=== PATIENT | male | born 1990 | race Two or more races ===

== ENCOUNTER 2024-01-29 18:35 | Emergency (ER) | payer MEDICAID, OTHER ==
[~2024-01-29] VITALS: Ht 175.3 cm; Wt 82.9 kg
[2024-01-29 19:24] VITALS: BP 136/93; PULSE 100; RESP 20; TEMP 98; O2SAT 97
[2024-01-29] MEDS ORDERED: CYCL-614 PO (20:37)
[2024-01-29] MEDS ORDERED: ACE3T PO (20:37)
[2024-01-29] MEDS: KETOROLAC TROMETH 60MG/2ML VIAL IM ONE (20:55)
== END 2024-01-29 21:14 | disposition left against medical advice (07) ==
LOC: ER 18:35
DX: M54.50 Low back pain, unspecified (principal); G89.29 Other chronic pain; G57.92 Unspecified mononeuropathy of left lower limb; Z79.899 Other long term (current) drug therapy
CPT/HCPCS: J1885

== ENCOUNTER 2024-03-05 05:37 | Emergency (ER) | payer MEDICAID, OTHER ==
[~2024-03-05] VITALS: Ht 170.2 cm; Wt 80.2 kg
[2024-03-05 08:17] VITALS: BP 150/100; PULSE 83; RESP 17; TEMP 98; O2SAT 98
[2024-03-05] MEDS ORDERED: AMOX500T3 PO (08:43)
[2024-03-05] MEDS ORDERED: HYDR-4902 PO (08:43)
[2024-03-05] MEDS ORDERED: PRED20TA2 PO (08:43)
[2024-03-05] MEDS ORDERED: HYDR-4798 PO (12:35)
== END 2024-03-05 08:49 | disposition home or self-care (01) ==
LOC: ER 05:37
DX: G89.29 Other chronic pain (principal); M54.59 Other low back pain; H60.509 Unspecified acute noninfective otitis externa, unspecified ear; Z79.899 Other long term (current) drug therapy; Z79.1 Long term (current) use of non-steroidal anti-inflammatories (NSAID)

== ENCOUNTER 2024-05-30 21:35 | Emergency (ER) | payer MEDICAID, OTHER ==
[~2024-05-30] VITALS: Ht 170.2 cm; Wt 83.5 kg
[~2024-05-30 21:35] MED LIST: AMOX500T3 PO; HYDR-4798 PO; HYDR-4902 PO; PRED20TA2 PO
[2024-05-30] MEDS: KETOROLAC TROMETH 60MG/2ML VIAL IM ONE (22:40)
[2024-05-30] MEDS: HYDROcodone-ACET 10/325MG TAB PO ONE (22:40)
[2024-05-30 22:49] VITALS: BP 133/96; PULSE 92; RESP 20; TEMP 98.5; O2SAT 99
[2024-05-30] MEDS ORDERED: HYDR-4798 PO (23:13)
== END 2024-05-31 00:01 | disposition home or self-care (01) ==
LOC: ER 21:35
DX: G89.29 Other chronic pain (principal); M54.50 Low back pain, unspecified; Z79.52 Long term (current) use of systemic steroids
CPT/HCPCS: 96372; 99283; J1885

== ENCOUNTER 2024-06-25 01:13 | Emergency (ER) | payer OTHER ==
[~2024-06-25] VITALS: Ht 170.2 cm; Wt 80.0 kg
[2024-06-25] MEDS ORDERED: TRAM50TA2 PO (04:07)
[2024-06-25] MEDS ORDERED: CYCL-837 PO (04:07)
--- NOTE | 2024-06-25 04:08 | ED.PDOC ---
Back pain HPI HPI Comments 34-year-old male presents to ER complaints of medication refill. Patient with past medical history significant for chronic lumbar back pain from a work- related injury that occurred on 08/23/2023 presents to ER today stating that he recently ran out of his tramadol 50 mg that he takes for chronic back pain and is requesting medication refill of this medication in ER today. He rates his current pain a 9/10 to left lower lumbar region with radiation down posterior left leg that he reports is chronic. States he is currently awaiting a referral approval to see a pain management doctor and has been following up with workman's comp as directed. Patient presents to ER ambulatory on arrival, with steady gait, in mild distress and notes he does have numbness/tingling down posterior left leg that he reports is chronic. Denies fever, body aches, chills, night sweats, nausea/vomiting, abdominal/pelvic pain, changes in urination/BM or any further symptoms/complaints Chief Complaint: Back Pain Time Seen by MD: 01:42 Primary Care Provider: NONE Allergies: Coded Allergies: NO KNOWN ALLERGIES (Unverified , 01/29/24) Home Meds Active Scripts Tramadol Hcl (Tramadol Hcl) 50 Mg Tab, 50 MG PO Q6HPRN, #15 TAB 0 Refills Prov:ANNAMARIE THOMAS 06/25/24 Cyclobenzaprine Hcl (Cyclobenzaprine Hcl) 5 Mg Tab, 1 TAB PO QHSP, #14 TAB 0 Refills Prov:ANNAMARIE THOMAS 06/25/24 Hydrocodone-Acetaminophen (Hydrocodone Bitartrate/AC 10-325 mg) 1 Tab Tab, 1 TAB PO Q8HP PRN, #15 TAB Prov:MAYNOR WANG 05/30/24 Hydrocodone-Acetaminophen (Hydrocodone Bitartrate/AC 10-325 mg) 1 Tab Tab, 0.5 TAB PO Q6HPRN PRN for 7 Days, #14 TAB 0 Refills Prov:DANILO LOERA NP 03/05/24 Hydrocodone-Acetaminophen (Hydrocodone Bitartrate/AC 5-325 mg) 1 Tab Tab, 1 TAB PO Q6HPRN PRN for 7 Days, #28 TAB 0 Refills Prov:DANILO LOERA ROUNDHOUSE WORKER 03/05/24 Prednisone (Prednisone) 20 Mg Tab, 40 MG PO DAILY for 5 Days, #10 TAB 0 Refills Prov:DANILO LOERA ROUNDHOUSE WORKER 03/05/24 Amoxicillin Trihydrate (Amoxicillin) 500 Mg Tab, 1 TAB PO BID for 10 Days, #20 TAB 0 Refills Prov:DANILO LOERA ROUNDHOUSE WORKER 03/05/24 Mode of Arrival: Ambulatory Past Medical History Past Medical History (Other): Chronic lumbar back pain Surgical History: Denies all surgeries Family History Family History: Unknown Social History Smoker: Non-Smoker Alcohol: Denies ETOH Use Drugs: Denies Drug Use Lives In: Home Constitutional: denies: chills, diaphoresis, fatigue, fever, malaise, sweats, weakness, others EENTM: denies: blurred vision, double vision, ear bleeding, ear discharge, ear drainage, ear pain, ear ringing, eye pain, eye redness, hearing loss, mouth pain, mouth swelling, nasal discharge, nose bleeding, nose congestion, nose pain, photophobia, tearing, throat pain, throat swelling, voice changes, others Respiratory: denies: cough, hemoptysis, orthopnea, SOB at rest, shortness of breath, SOB with excertion, stridor, wheezing, others Cardiovascular: denies: chest pain, dizzy spells, diaphoresis, Dyspnea on exertion, edema, irregular heart beat, left arm pain, lightheadedness, palpitations, PND, syncope, others Gastrointestinal: denies: abdomen distended, abdominal pain, blood streaked bowels, constipated, diarrhea, dysphagia, difficulty swallowing, hematemesis, melena, nausea, poor appetite, poor fluid intake, rectal bleeding, rectal pain, vomiting, others Genitourinary: denies: burning, dysuria, flank pain, frequency, hematuria, incontinence, penile discharge, penile sore, pain, testicle pain, testicle swelling, urgency, others Neurological: reports: others (As stated in HPI) Musculoskeletal: reports: others (As stated in HPI) Integumetry: denies: bruises, change in color, change in hair/nails, dryness, laceration, lesions, lumps, rash, wounds, others Allergic/Immunocompromised: denies: Difficulty Healing, Frequent Infections, Hives, Itching, others Hematologic/Lymphatic: denies: anemia, blood clots, easy bleeding, easy bruising, swollen glands, others Endocrine: denies: excessive hunger, excessive sweating, excessive thirst, excessive urination, flushing, intolerance to cold, intolerance to heat, unexplained weight gain, unexplained weight loss, others Psychiatric: denies: anxiety, bipolar disorder, depression, hopeless, panic disorder, schizophrenia, sleepless, suicidal, others Physical Exam General Appearance: Mild Distress (Due to left lower lumbar back pain) HEENT: PERRL/EOMI Neck: Full Range of Motion, Non-Tender, Normal Respiratory: Chest Non-Tender, Lungs Clear, No Accessory Muscle Use, No Respiratory Distress, Normal Breath Sounds Cardiovascular: No Murmur, No Gallop, Regular Rate/Rhythm Breast Exam: Deferred Gastrointestinal: Non Tender, No Pulsatile Mass, Soft Genitalia: Deferred Pelvic: Deferred Rectal: Deferred Extremities: No calf tenderness, Normal capillary refill, Normal range of motion Musculoskeletal : Extremity Location: Back (TTP to left lower lumbar region noted. No skin changes noted. Steady gait appreciated) Neurologic: Alert, pharmacognosy teacher II-XII nml as Tested, No Motor Deficits, No Sensory Deficits Cerebellar Function: Normal Reflexes: Normal Skin: Dry, Normal Color, Warm Peripheral Pulses: 2+ dorsalis pedis (R), 2+ dorsalis pedis (L) Lymphatic: No Adenopathy Was a procedure done? Was a procedure done?: No Sedation Sedation?: No Back Pain Differential Dx Differential Diagnosis: AAA, Fracture, Urolithiasis X-Ray, Labs, Meds, VS Vital Signs Date Time Temp Pulse Resp B/P (MAP) Pulse Ox O2 Delivery O2 Flow Rate FiO2 06/25/24 01:21 98.1 97 18 147/99 (115) 97 Solu-Medrol 125 mg IM ordered - patient refused Toradol 60 mg IM ordered - patient refused Patient neurovascularly intact Advised on rest/no strenuous activity Cures checked Advised to follow up with PCP, workman's comp PCP and pain management in 1-2 days Patient verbalized understanding and agreeable with current plan of care Advised to return to ER immediately if symptoms worsen Time of 1ST Reevaluation: 03:44 Reevaluation 1ST: N/A Patient Education/Counseling: Diagnosis, Treatment, Prognosis, Need For Follow Up Family Education/Counseling: No Family Present Departure 1 Departure Time of Disposition: 04:02 Impression: Primary Impression: Chronic lumbar radiculopathy Additional Impression: Medication refill Disposition: HOME / SELF CARE / HOMELESS Condition: Stable e-Prescriptions Tramadol Hcl (Tramadol Hcl) 50 Mg Tab 50 MG PO Q6HPRN, #15 TAB 0 Refills Prov: ANNAMARIE THOMAS 06/25/24 Cyclobenzaprine Hcl (Cyclobenzaprine Hcl) 5 Mg Tab 1 TAB PO QHSP, #14 TAB 0 Refills Prov: ANNAMARIE THOMAS 06/25/24 Discharged With: Friend Critical Care Note Critical Care Time?: No Stability Stability form required: No Heart Score Heart Score: Heart Score Response (Comments) Value History N/A 0 EKG N/A 0 Age N/A 0 Risk Factors N/A 0 Troponin N/A 0 Total 0 ANNAMARIE THOMAS Jun 25, 2024 04:08
[2024-06-25] MEDS: methylPREDNISolone SOD SUCC 125 MG/2 ML VL IM ONE (04:15)
[2024-06-25] MEDS: KETOROLAC TROMETH 60MG/2ML VIAL IM ONE (04:15)
[2024-06-25 04:44] VITALS: BP 140/90; PULSE 95; RESP 18; TEMP 98; O2SAT 98
== END 2024-06-25 04:58 | disposition home or self-care (01) ==
LOC: ER 01:13
DX: M54.16 Radiculopathy, lumbar region (principal); Z76.0 Encounter for issue of repeat prescription; Z79.899 Other long term (current) drug therapy
CPT/HCPCS: 99283; J1885; J2919

== ENCOUNTER 2024-12-01 12:32 | Emergency (ER) | payer OTHER ==
[~2024-12-01] VITALS: Ht 170.2 cm; Wt 81.8 kg
[~2024-12-01 12:32] MED LIST changes: +CYCL-837 PO; +TRAM50TA2 PO
--- NOTE | 2024-12-01 14:03 | ED.PDOC ---
Back pain HPI HPI Comments This is a pleasant 34-year-old gentleman with a chief complaint of nonradiating lower back pain Rated moderate/severe and has not taken medication at this time Has hx of Chx BP Reports is an ongoing issue and has been f/u with pain management outpatient Currently transferring are to ortho MRI spine Lumbar w/o contrast completed 08/23/2023 at [facility]: Impression shows: mild degenerative changes at L3-L4 causing no significant central spinal canal stenosis Requesting pain medication Denies any history of cancer Denies fevers chills night sweats nausea vomiting unintentional weight loss Denies IV drug use history of HIV/TB Denies abdominal "tearing" pain Denies syncope Denies urinary incontinence or urinary changes Denies numbness tingling of the groin or inner thigh Denies previous back procedure or surgery Chief Complaint: Back Pain Time Seen by MD: 12:53 Primary Care Provider: NONE Reviewed Notes: Nurses Notes, Medications, Allergies Allergies: Coded Allergies: NO KNOWN ALLERGIES (Unverified , 01/29/24) Home Meds Active Scripts Tramadol Hcl (Tramadol Hcl) 50 Mg Tab, 50 MG PO Q6HPRN, #15 TAB 0 Refills Prov:ANNAMARIE THOMAS 06/25/24 Cyclobenzaprine Hcl (Cyclobenzaprine Hcl) 5 Mg Tab, 1 TAB PO QHSP, #14 TAB 0 Refills Prov:ANNAMARIE THOMAS 06/25/24 Hydrocodone-Acetaminophen (Hydrocodone Bitartrate/AC 10-325 mg) 1 Tab Tab, 1 TAB PO Q8HP PRN, #15 TAB Prov:MAYNOR WANG 05/30/24 Hydrocodone-Acetaminophen (Hydrocodone Bitartrate/AC 10-325 mg) 1 Tab Tab, 0.5 TAB PO Q6HPRN PRN for 7 Days, #14 TAB 0 Refills Prov:DANILO LOERA NP 03/05/24 Hydrocodone-Acetaminophen (Hydrocodone Bitartrate/AC 5-325 mg) 1 Tab Tab, 1 TAB PO Q6HPRN PRN for 7 Days, #28 TAB 0 Refills Prov:DANILO LOERA NP 03/05/24 Prednisone (Prednisone) 20 Mg Tab, 40 MG PO DAILY for 5 Days, #10 TAB 0 Refills Prov:DANILO LOERA STAMPING OPERATOR 03/05/24 Amoxicillin Trihydrate (Amoxicillin) 500 Mg Tab, 1 TAB PO BID for 10 Days, #20 TAB 0 Refills Prov:DANILO LOERA STAMPING OPERATOR 03/05/24 Information Source: Patient Mode of Arrival: EMS Past Medical History Past Medical History (Other): Chx back pain Surgical History: Denies all surgeries Family History Family History: Unknown Social History Smoker: Non-Smoker Alcohol: Denies ETOH Use Drugs: Denies Drug Use Lives In: Home All Other Systems: Reviewed and Negative (per hpi) Physical Exam General Appearance: No Apparent Distress, Normal HEENT: Normal ENT Inspection, Pharynx Normal, TMs Normal Neck: Full Range of Motion, Non-Tender, Normal, Normal Inspection Respiratory: Chest Non-Tender, Lungs Clear, No Accessory Muscle Use, No Respiratory Distress, Normal Breath Sounds Cardiovascular: No Edema, No JVD, No Murmur, No Gallop, Normal Peripheral Pulses, Regular Rate/Rhythm Breast Exam: Deferred Gastrointestinal: No Organomegaly, Non Tender, No Pulsatile Mass, Normal Bowel Sounds, Soft Genitalia: Deferred Pelvic: Deferred Rectal: Deferred Extremities: No calf tenderness, Normal capillary refill, Normal inspection, Normal range of motion, Non-tender, No pedal edema Musculoskeletal : Extremity Location: Back (Gross abnormality. No bony step-offs on palpation. Pain with flexion-extension and lateral movements. Distal sensation intact) Apperance: Normal Neurologic: Alert, center manager II-XII nml as Tested, No Motor Deficits, Normal Affect, Normal Mood, No Sensory Deficits Cerebellar Function: Normal Reflexes: Normal Skin: Dry, Normal Color, Warm Lymphatic: No Adenopathy Was a procedure done? Was a procedure done?: No Back Pain Differential Dx Differential Diagnosis: Musculoskeletal Pain X-Ray, Labs, Meds, VS Vital Signs Date Time Temp Pulse Resp B/P (MAP) Pulse Ox O2 Delivery O2 Flow Rate FiO2 12/01/24 14:13 98.8 108 16 131/84 (100) 99 98.8 12/01/24 14:13 108 16 99 Room Air 12/01/24 12:40 98.8 108 16 131/84 (100) 99 98.8 Current Medications Medications (Trade) Dose Ordered Sig/Puneet Route Start Time Stop Time Status Last Admin Acetaminophen/ Hydrocodone Bitart ([place]ell 7.5/325MG Tab) 1 tab ONCE ONCE PO 12/01/24 13:30 12/01/24 13:31 DC 12/01/24 14:05 X-Ray, Labs, Meds, VS Comment Presentation most consistent with nonemergent musculoskeletal etiology versus nonemergent disc herniation. ED workup: Defer imaging and lab work for outpatient follow up at this time Disposition: Discharge. Strict return precautions discussed with the patient with full understanding. Supportive care advised (rest, ice, heat, NSAIDs, stretching exercises) Massage muscles with cold pack or ice for 20 minutes 4 times per day. Usually most useful if there is swelling during the first 48 hours Heating pad on the most painful area for 20 minutes to relieve muscle spasm Sleep and the most comfortable sleeping position (usually on the side with knees bent) Light stretching, no strenuous activity, avoid frequent bending, avoid carrying heavy objects Discussed possible benefits of yoga and acupuncture Return precautions discussed including Inability to walk/bear weight Paresthesia/weakness/leg pain Fecal/urinary incontinence Any worsening symptoms Patient is stable for discharge at this time. External notes reviewed. Test results and diagnostic imaging interpreted. All diagnostic findings, discharge care, education and instructions provided Follow-up with PCP in 2 to 3 days Patient verbalized understanding and agreed to treatment plan Vital signs stable, afebrile, no acute distress noted Patient ambulatory with strong steady gait Advised to return precautions for any new or worsening symptoms, return to ER immediately for re-evaluation Patient is aware that the purpose of this visit was for an acute medical emergency requiring emergent stabilization. Chronic conditions, including malignancies have not been ruled out. Patient is instructed to follow up with PCP as directed and discharge instructions for continued care and workup. If unable to arrange follow-up, patient is to return to the emergency department for reassessment. Patient (parent or legal guardian if applicable) was given verbal and written discharge instructions and acknowledges understanding. Time of 1ST Reevaluation: 14:02 Reevaluation 1ST: Improved Patient Education/Counseling: Diagnosis, Treatment Family Education/Counseling: Diagnosis, Treatment Departure 1 Departure Time of Disposition: 14:48 Impression: Primary Impression: Chronic lumbar pain Qualified Codes: M54.50 - Low back pain, unspecified; G89.29 - Other chronic pain Disposition: 01 HOME / SELF CARE / HOMELESS Condition: Stable Discharged With: Self Critical Care Note Critical Care Time?: No Stability Stability form required: No Heart Score Heart Score: Heart Score Response (Comments) Value History N/A 0 EKG N/A 0 Age N/A 0 Risk Factors N/A 0 Troponin N/A 0 Total 0 DANILO LOERA NP December 01, 2024 14:02
[2024-12-01] MEDS: HYDROcodone-ACET 7.5/325MG TAB PO ONE (14:05)
[2024-12-01 14:13] VITALS: BP 131/84; PULSE 108; RESP 16; TEMP 98.8; O2SAT 99
== END 2024-12-01 14:54 | disposition home or self-care (01) ==
LOC: ER 12:32 → EDBD 12:32 → EDSEX 12:32 → ER 14:53
DX: G89.29 Other chronic pain (principal); M54.50 Low back pain, unspecified; Z79.52 Long term (current) use of systemic steroids; Z79.899 Other long term (current) drug therapy

== ENCOUNTER 2025-05-04 10:56 | Emergency (ER) | payer OTHER ==
[~2025-05-04] VITALS: Ht 165.1 cm; Wt 80.6 kg
[2025-05-04 10:58] VITALS: TEMP 98.2
[2025-05-04 11:16] VITALS: BP 157/89; PULSE 115; RESP 18; O2SAT 99
[2025-05-04] MEDS ORDERED: HYDR-4902 PO (11:47)
[2025-05-04] MEDS ORDERED: PRED20TA2 PO (11:47)
--- NOTE | 2025-05-04 11:49 | ED.PDOC ---
Back pain HPI HPI Comments 35 y/o M, with PMHx of chronic back pain presents to the ED for CC of back pain. Patient states, he has been experiencing left lumbar back pain that "shoots" down his left hip into his left leg x2days. Patient reports, that pain resulted from previous work comp injury last year and is currently being managed by his pain management doctor however, is in between appointments. Patient denies any new trauma, injuries, or falls. No other symptoms or modifying factors are present at this time. Chief Complaint: Back Pain Time Seen by MD: 11:30 Primary Care Provider: NONE Reviewed Notes: Nurses Notes, Medications, Allergies Allergies: Coded Allergies: NO KNOWN ALLERGIES (Unverified , 01/29/24) Home Meds Active Scripts Hydrocodone-Acetaminophen (Hydrocodone Bitartrate/AC 5-325 mg) 1 Tab Tab, 1 TAB PO Q6HPRN PRN for 7 Days, #28 TAB 0 Refills Prov:ASHLEY ROBINS MD 05/04/25 Prednisone (Prednisone) 20 Mg Tab, 40 MG PO DAILY for 5 Days, #10 TAB 0 Refills Prov:ASHLEY ROBINS MD 05/04/25 Tramadol Hcl (Tramadol Hcl) 50 Mg Tab, 50 MG PO Q6HPRN, #15 TAB 0 Refills Prov:ANNAMARIE THOMAS 06/25/24 Cyclobenzaprine Hcl (Cyclobenzaprine Hcl) 5 Mg Tab, 1 TAB PO QHSP, #14 TAB 0 Refills Prov:ANNAMARIE THOMAS 06/25/24 Hydrocodone-Acetaminophen (Hydrocodone Bitartrate/AC 10-325 mg) 1 Tab Tab, 1 TAB PO Q8HP PRN, #15 TAB Prov:MAYNOR WANG PAC 05/30/24 Hydrocodone-Acetaminophen (Hydrocodone Bitartrate/AC 10-325 mg) 1 Tab Tab, 0.5 TAB PO Q6HPRN PRN for 7 Days, #14 TAB 0 Refills Prov:DANILO LOERA NP 03/05/24 Amoxicillin Trihydrate (Amoxicillin) 500 Mg Tab, 1 TAB PO BID for 10 Days, #20 TAB 0 Refills Prov:DANILO LOERA NP 03/05/24 Information Source: Patient Mode of Arrival: Ambulatory Timing: Days Location of Back pain: (L) Lumbar Severity: Moderate Prehospital treatment: None History of: Chronic Back Pain Modifying Factors: Nothing Associated signs and symptoms: None Past Medical History PAST MEDICAL HISTORY: Denies Surgical History: Denies all surgeries Family History Family History: Unknown Social History Smoker: Non-Smoker Alcohol: Denies ETOH Use Drugs: Denies Drug Use Lives In: Home Constitutional: denies: chills, diaphoresis, fatigue, fever, malaise, sweats, weakness, others EENTM: denies: blurred vision, double vision, ear bleeding, ear discharge, ear drainage, ear pain, ear ringing, eye pain, eye redness, hearing loss, mouth pain, mouth swelling, nasal discharge, nose bleeding, nose congestion, nose pain, photophobia, tearing, throat pain, throat swelling, voice changes, others Respiratory: denies: cough, hemoptysis, orthopnea, SOB at rest, shortness of breath, SOB with excertion, stridor, wheezing, others Cardiovascular: denies: chest pain, dizzy spells, diaphoresis, Dyspnea on exertion, edema, irregular heart beat, left arm pain, lightheadedness, palpitations, PND, syncope, others Gastrointestinal: denies: abdomen distended, abdominal pain, blood streaked bowels, constipated, diarrhea, dysphagia, difficulty swallowing, hematemesis, melena, nausea, poor appetite, poor fluid intake, rectal bleeding, rectal pain, vomiting, others Genitourinary: denies: burning, dysuria, flank pain, frequency, hematuria, incontinence, penile discharge, penile sore, pain, testicle pain, testicle swelling, urgency, others Neurological: denies: dizziness, fainting, headache, left sided numbness, left sided weakness, numbness, paresthesia, pre-existing deficit, right sided numbness, right sided weakness, seizure, speech problems, tingling, tremors, weakness, others Musculoskeletal: reports: back pain; denies: gout, joint pain, joint swelling, muscle pain, muscle stiffness, neck pain, others Integumetry: denies: bruises, change in color, change in hair/nails, dryness, laceration, lesions, lumps, rash, wounds, others Allergic/Immunocompromised: denies: Difficulty Healing, Frequent Infections, Hives, Itching, others Hematologic/Lymphatic: denies: anemia, blood clots, easy bleeding, easy bruising, swollen glands, others Endocrine: denies: excessive hunger, excessive sweating, excessive thirst, excessive urination, flushing, intolerance to cold, intolerance to heat, unexplained weight gain, unexplained weight loss, others Psychiatric: denies: anxiety, bipolar disorder, depression, hopeless, panic disorder, schizophrenia, sleepless, suicidal, others All Other Systems: Reviewed and Negative Physical Exam General Appearance: Mild Distress HEENT: Normal ENT Inspection, Pharynx Normal, TMs Normal Neck: Full Range of Motion, Non-Tender, Normal, Normal Inspection Respiratory: Chest Non-Tender, Lungs Clear, No Accessory Muscle Use, No Respiratory Distress, Normal Breath Sounds Cardiovascular: No Edema, No JVD, No Murmur, No Gallop, Normal Peripheral Pulses, Regular Rate/Rhythm Breast Exam: Deferred Gastrointestinal: No Organomegaly, Non Tender, No Pulsatile Mass, Normal Bowel Sounds, Soft Genitalia: Deferred Pelvic: Deferred Rectal: Deferred Extremities: No calf tenderness, Normal capillary refill, No pedal edema Musculoskeletal : Location: Left Extremity Location: Back Apperance: Limited ROM Neurologic: Alert, fixer boarding room II-XII nml as Tested, No Motor Deficits, Normal Affect, Normal Mood, No Sensory Deficits Cerebellar Function: Normal Reflexes: Normal Skin: Dry, Normal Color, Warm Lymphatic: No Adenopathy Was a procedure done? Was a procedure done?: No Back Pain Differential Dx Differential Diagnosis: Fracture, Musculoskeletal Pain X-Ray, Labs, Meds, VS Vital Signs Date Time Temp Pulse Resp B/P (MAP) Pulse Ox O2 Delivery O2 Flow Rate FiO2 05/04/25 11:16 115 18 99 Room Air 05/04/25 11:16 115 10 157/89 (111) 99 05/04/25 10:58 98.2 116 16 137/98 98 98.2 Current Medications Medications (Trade) Dose Ordered Sig/Puneet Route Start Time Stop Time Status Last Admin Ketorolac Tromethamine (Toradol Injection) 60 mg ONCE ONCE IM 05/04/25 11:45 05/04/25 11:46 DC 05/04/25 11:54 The patient was given Toradol IM here in the emergency department's At this time, the patient is being discharged The patient was given a prescription of a muscle relaxer as well as [place] The patient will return to the emergency department's the condition worsens Time of 1ST Reevaluation: 12:05 Reevaluation 1ST: Unchanged Patient Education/Counseling: Diagnosis, Treatment, Prognosis, Need For Follow Up Family Education/Counseling: No Family Present SEPSIS Sepsis Screen Date sepsis recognized/suspect: May 04, 2025 Time Sepsis recognized/suspect: 1058 Recent Procedure: No On Antibiotic Therapy: No Respiratory Rate >20: No Heart Rate >90: Yes Temp<36 C (96.8 F) or >38.3 C: No SBP <90 or MAP <65 mmHG: No New Acute Mental Status Change: No Is the patient on CPAP, BIPAP,: No Vital Signs Date Time Temp Pulse Resp B/P (MAP) Pulse Ox O2 Delivery O2 Flow Rate FiO2 05/04/25 11:16 115 18 99 Room Air 05/04/25 11:16 115 10 157/89 (111) 99 05/04/25 10:58 98.2 116 16 137/98 98 98.2 Medications Medications Dose Ordered Sig/Puneet Route Start Time Stop Time Status Last Admin Dose Admin Ketorolac Tromethamine 60 mg ONCE ONCE IM 05/04/25 11:45 05/04/25 11:46 DC 05/04/25 11:54 Departure 1 Departure Time of Disposition: 13:01 Impression: Primary Impression: Sciatica Qualified Codes: M54.30 - Sciatica, unspecified side Disposition: HOME / SELF CARE / HOMELESS Condition: Fair e-Prescriptions Hydrocodone-Acetaminophen (Hydrocodone Bitartrate/AC 5-325 mg) 1 Tab Tab 1 TAB PO Q6HPRN PRN for 7 Days, #28 TAB 0 Refills Prov: ASHLEY ROBINS MD 05/04/25 Prednisone (Prednisone) 20 Mg Tab 40 MG PO DAILY for 5 Days, #10 TAB 0 Refills Prov: ASHLEY ROBINS MD 05/04/25 Discharged With: Self Critical Care Note Critical Care Time?: No Stability Stability form required: No Heart Score Heart Score: Heart Score Response (Comments) Value History N/A 0 EKG N/A 0 Age N/A 0 Risk Factors N/A 0 Troponin N/A 0 Total 0 I personally scribed for ASHLEY ROBINS MD ([email or web address]) on 05/04/25 at 11:48. Electronically submitted by Susie Castañeda ([email or web address]). ASHLEY ROBINS MD May 04, 2025 11:48
[2025-05-04] MEDS: KETOROLAC TROMETH 60MG/2ML VIAL IM ONE (11:54)
== END 2025-05-04 13:02 | disposition home or self-care (01) ==
LOC: ER 10:56
DX: M54.40 Lumbago with sciatica, unspecified side (principal); Z79.52 Long term (current) use of systemic steroids; Z79.899 Other long term (current) drug therapy
CPT/HCPCS: 96372; 99283; J1885